=== PATIENT | female | born 1965 | race Caucasian/White ===

== ENCOUNTER → 2019-07-20 12:21 | Outpatient (BNVA) | payer MEDICARE, MEDICAID, SELFPAY | PROVIDERS: Family Provider Nurse Practitioner Family; PCP Nurse Practitioner Family; Visit Provider Internal Medicine Cardiovascular Disease | DX: I42.9 Cardiomyopathy, unspecified (principal); R06.02 Shortness of breath; I50.33 Acute on chronic diastolic (congestive) heart failure; I25.10 Atherosclerotic heart disease of native coronary artery without angina pectoris; I35.0 Nonrheumatic aortic (valve) stenosis | CPT/HCPCS: 80048; 83880 ==

== ENCOUNTER 2019-08-04 07:32 | Outpatient (CLI) | payer MEDICARE, MEDICAID, SELFPAY ==
[2019-08-04 07:39] VITALS: BMI 31.0
--- NOTE | 2019-08-04 07:40 | ECG_ITS ---
[facility] Test Date: 2019-08-04 Pat Name: Milli Vega Department: Room: Gender: Female [employer]: : 1965 Requested By: Luis Howe Order Number: [id number] Micah MD: Luis Howe M.D. Interpretive Statements NAME OF STUDY: LEXISCAN SESTAMIBI STRESS TEST INDICATION: Chest Pain; S/P PCI RESULTS TO SYBIL COSTA PROCEDURE: At the baseline, the EKG revealed normal sinus rhythm with diffuse nonspecific ST-T changes.. The baseline blood pressure was 107/67 mm Hg with a heart rate of 93 beats/min. Lexiscan was infused over a period of 20 seconds. A total of 0.4 milligrams of Lexiscan was infused. The stress phase was continued for a total of 5 minutes. Heart rate at the end of the stress phase was 98 with a blood pressure 86/60. The EKG at the peak infusion revealed no significant changes. Sestamibi was injected 20 seconds after the Lexiscan infusion. Blood pressure at the end of the recovery phase was 106/62 with a heart rate of 96 per minute. CONCLUSION: 1. No significant EKG changes with the LexiScan infusion 2. No LexiScan induced chest pain or cardiac arrhythmia 3. Normal blood pressure and heart rate response 4. Sestamibi/sestamibi perfusion scan pending; see separate report. Electronically Signed On 08-08-2019 13:25:37 CDT by Luis Howe M.D. [id number]
--- NOTE | 2019-08-04 07:41 | NMCV_ITS ---
NM shahab perf SPECT r/s* [id number] Milli Vega Age: 54 Gender: F : 1965 Exam Date: 08/04/2019 07:41 Ordering Phys: Luis Howe MD ([email or web address]) Technologist: JANIYA Bermudez Exam Location: [facility] Indications: SHORTNESS OF BREATH ATHEROSCLEROTIC HEART DISEASE STRESS TEST Please see separate stress test report in [facility] for full findings IMAGE PROTOCOL Rest/Stress 1 Lexiscan Day Radiopharmaceutical Dose (mCi) Administration Site Administered by Rest: Tc-99m 10.8 IV JANIYA Pierre Sestamibi Stress:Tc-99m 32.0 IV JANIYA Bermudez Sestaminicole Rest: 04-Aug-2019 60 Discovery 630 Stress: 04-Aug-2019 30 Discovery 630 0.4mg Lexiscan. Images obtained in supine and prone position. SPECT RESULTS Technical Quality: Excellent Raw Data Analysis: Normal Image Corrections: No attenuation or motion correction applied Summed Stress Score: 12 Summed Rest Score: 1 Summed Difference Score: 11 PERFUSION FINDINGS Patchy areas of decreased tracer uptake in the inferior, inferolateral, anterior and apical regions with some reversibility FUNCTIONAL RESULTS (calculated via Gated SPECT) Stress Image LV EF (%): 16 Stress EDV (mL):241 TID: 1.1 Stress ESV (mL):202 FUNCTIONAL FINDINGS: Segmental wall motion analysis revealed a severe diffuse hypokinesia of the left ventricle IMPRESSIONS 1. Myocardial perfusion may revealing patchy areas decreased tracer uptake in the inferior, inferolateral, anterior and apical regions with some reversibility, suggestive of myocardial scarring with possible benito-infarction ischemia. 2. Markedly diminished left ventricular ejection fraction of 16%. 3. Left ventricular wall motion analysis revealing severe diffuse hypokinesia left ventricle. 4. Moderately dilated LV cavity with an end-systolic volume of 202 mL No similar previous studies are available for comparison Dr Luis Howe MD FACC (Electronically Signed) Final Date: 04 August 2019 19:10 S
[2019-08-04] MEDS: regadenoson 0.4 Mg/5 ml Syringe IVP (10:13)
--- NOTE | 2019-08-04 10:13 | SUR.PREOP ---
Patient reports no pain or discomfort prior to the start of the procedure.
[2019-08-04 10:20] VITALS: BP 106/62; PULSE 97
== END 2019-08-04 07:33 | disposition home or self-care (01) ==
PROVIDERS: Family Provider Nurse Practitioner Family; PCP Nurse Practitioner Family; Visit Provider Internal Medicine Cardiovascular Disease
DX: I25.10 Atherosclerotic heart disease of native coronary artery without angina pectoris (principal); R06.02 Shortness of breath
CPT/HCPCS: 78452; 93017; A9500; J2785

== ENCOUNTER 2019-08-15 15:36 | Outpatient (CLI) | payer MEDICARE, MEDICAID, SELFPAY ==
--- NOTE | 2019-08-15 15:48 | USCV_ITS ---
Milli Vega Age: 54 Gender: F : 1965 Exam Date: 08/15/2019 15:43 Ordering Phys: Luis oHwe MD ([email or web address]) Technologist: Lesly Ma Exam Location: [facility] [place] Indication: AV STENOSIS BP: / HR: 112 Rhythm: Sinus Technical Quality: Adequate MEASUREMENTS (Male / Female) Normal Values 2D ECHO LV Diastolic Diameter PLAX 5.9 cm 4.2 - 5.9 / 3.9 - 5.3 cm LV Systolic Diameter PLAX 6.3 cm LV Chamber Size 6.6 cm IVS Diastolic Thickness 0.9 cm 0.6 - 1.0 / 0.6 - 0.9 cm IVS Systolic Thickness 0.8 cm LVPW Diastolic Thickness 1.4 cm 0.6 - 1.0 / 0.6 - 0.9 cm LVPW Systolic Thickness 1.6 cm RV Chamber Size 3.1 cm LVOT Diameter 2.0 cm LV Ejection Fraction 2D Teich 12.3 % LV Ejection Fraction MOD 2C 18.2 % LV Ejection Fraction 2C AL 17.3 % LA Diameter 4.2 cm LA Width 3.6 cm LA Height 5.0 cm RA Width 3.0 cm RA Height 3.5 cm Aorta at Sinotubular Diameter 2.3 cm M-MODE LV Diastolic Diameter MM 6.9 cm 4.2 - 5.9 / 3.9 - 5.3 cm LV Systolic Diameter MM 6.7 cm LV Ejection Fraction MM Teich 7.7 % IVS Diastolic Thickness MM 0.5 cm 0.6 - 1.0 / 0.6 - 0.9 cm IVS Systolic Thickness MM 0.9 cm LVPW Diastolic Thickness MM 0.5 cm 0.6 - 1.0 / 0.6 - 0.9 cm LVPW Systolic Thickness MM 0.7 cm Aortic Annulus Diameter 2.8 cm LA Ao Ratio MM 1.5 MV E Point Septal Separation 2.9 cm DOPPLER AV Peak Velocity 126.0 cm/s LVOT Peak Velocity 87.0 cm/s AV Area Cont Eq vti 2.3 cm squared AV Area Cont Eq pk 2.2 cm squared MV Area PHT 6.5 cm squared Mitral E to A Ratio 151.0 MV E' Velocity 11.0 cm/s Mitral E to MV E' Ratio 9.3 Mitral E to LV E' Lateral Ratio 9.5 Mitral E to LV E' Septal Ratio 9.0 TR Peak Velocity 347.0 cm/s TR Peak Gradient 48.0 mmHg TV Peak E Velocity 110.0 cm/s Right Atrial Pressure 3.0 mmHg Pulmonary Artery Systolic Pressu 51.2 mmHg PV Peak Velocity 74.0 cm/s RV Acceleration Time 0.1 s RV Ejection Time 0.3 s RV AcT/ET 0.4 FINDINGS Left Ventricle Mildly increased left ventricular cavity size. Severe diffuse hypokinesia of the left ventricle with an ejection fraction around 20%. Thinned out septum. Right Ventricle The right ventricle is normal in size and function. Right Atrium The right atrium is normal in size. Left Atrium Mildly increased left atrial size. Mitral Valve Thickened mitral valve. Moderate mitral valve regurgitation. Aortic Valve No gross abnormalities noted Tricuspid Valve Mild tricuspid valve regurgitation. Pulmonic Valve No gross abnormalities noted Pericardium No pericardial effusion. Aorta Normal aortic annulus size. CONCLUSIONS Moderately dilated LV cavity Severe diffuse hypokinesia of the left ventricle with an ejection fraction around 20%. Thinned out septum. Mildly increased left atrial size. Thickened mitral valve. Moderate mitral valve regurgitation. Mild tricuspid valve regurgitation. There is no pericardial effusion. There are no intracardiac masses. Compared to the study from 03/01/2017, there is worsening of the LV ejection fraction with a more dilated left ventricle Dr Luis Howe MD FACC (Electronically Signed) Final Date: 15 August 2019 20:42 S
== END 2019-08-15 15:37 | disposition home or self-care (01) ==
LOC: RAD 15:39
PROVIDERS: Family Provider Nurse Practitioner Family; PCP Nurse Practitioner Family; Visit Provider Internal Medicine Cardiovascular Disease
DX: I35.0 Nonrheumatic aortic (valve) stenosis (principal); I42.9 Cardiomyopathy, unspecified; I34.0 Nonrheumatic mitral (valve) insufficiency; I07.1 Rheumatic tricuspid insufficiency
CPT/HCPCS: 93306